=== PATIENT | male | born 1945 | race Caucasian/White ===

== ENCOUNTER → 2020-12-03 | Outpatient (CLI) | payer OTHER ==
[~2020-12-03] MED LIST: ALDACTONE 25MG25 MG PO; ASPIR 8181 MG PO; CRESTOR20 MG PO; EFFIENT10 MG PO; LEVOXYL75 MCG PO; METFORMIN HCL1000 M1 PO; PRINIVIL20 MG PO; RANEXA500 MG PO; TENORMIN 50 MG50 MG PO
[2020-12-03 09:41] LABS: HEMOGLOBIN 16.3 gm/dl (14.0-17.5); RED BLOOD COUNT 5.12 M/UL (4.20-5.50); WHITE BLOOD COUNT 8.3 K/UL (4.5-11.0)
[2020-12-03 10:22] LABS: BUN/CREATININE RATIO 13 (0-10)
[2020-12-04 10:14] LABS: CREATININE, URINE 155.1 mg/dL (Not Estab.)
[2020-12-05 12:14] LABS: CHOLESTEROL, TOTAL 115 mg/dL (100-199); HDL SIZE 8.6 nm (>=9.2); HDL-C 33 mg/dL (>39); HDL-P (TOTAL) 25.7 umol/L (>=30.5); LARGE HDL-P 1.9 umol/L (>=4.8); LARGE VLDL-P 6.5 nmol/L (<=2.7); LDL SIZE 20.3 nm (>20.5); LDL SIZE 20.3 nm (>=20.8); LDL-C 58 mg/dL (0-99); LDL-P 885 nmol/L (<1000); LP-IR SCORE 82 (<=45); SMALL LDL-P 485 nmol/L (<=527); TRIGLYCERIDES 137 mg/dL (0-149); VLDL SIZE 54.4 nm (<=46.6)
== END ==
LOC: LAB 09:04
PROVIDERS: Emergency Medicine
DX: E11.42 Type 2 diabetes mellitus with diabetic polyneuropathy (principal); E11.65 Type 2 diabetes mellitus with hyperglycemia; E11.69 Type 2 diabetes mellitus with other specified complication; E78.2 Mixed hyperlipidemia; E03.8 Other specified hypothyroidism; I25.10 Atherosclerotic heart disease of native coronary artery without angina pectoris; J20.8 Acute bronchitis due to other specified organisms; E11.22 Type 2 diabetes mellitus with diabetic chronic kidney disease; I12.9 Hypertensive chronic kidney disease with stage 1 through stage 4 chronic kidney disease, or unspecified chronic kidney disease; N18.2 Chronic kidney disease, stage 2 (mild); L25.8 Unspecified contact dermatitis due to other agents
CPT/HCPCS: 36415; 80053; 82043; 82570; 83036; 84550; 85025

== ENCOUNTER → 2021-07-07 | Outpatient (CLI) | payer OTHER ==
[2021-07-07 09:54] LABS: BUN/CREATININE RATIO 9 (0-10)
== END ==
LOC: LAB 09:13
PROVIDERS: Emergency Medicine
DX: E11.42 Type 2 diabetes mellitus with diabetic polyneuropathy (principal); I10 Essential (primary) hypertension; E78.2 Mixed hyperlipidemia; E03.8 Other specified hypothyroidism
CPT/HCPCS: 36415; 80053; 83036

== ENCOUNTER 2022-02-24 15:33 | Inpatient (IN) | payer OTHER ==
[~2022-02-24] VITALS: Ht 170.2 cm; Wt 105.2 kg
[~2022-02-24 15:33] MED LIST changes: -CRESTOR20 MG PO
[2022-02-24 17:44] LABS: HEMOGLOBIN 14.5 gm/dl (14.0-17.5); RED BLOOD COUNT 4.71 M/UL (4.20-5.50); WHITE BLOOD COUNT 15.6 K/UL (4.5-11.0)
[2022-02-24 18:37] LABS: BUN/CREATININE RATIO 17 (0-10)
[2022-02-25] MEDS ORDERED: CRESTOR40 MG PO (01:23)
[2022-02-25 02:54] LABS: RED BLOOD COUNT 4.33 M/UL (4.20-5.50); WHITE BLOOD COUNT 15.7 K/UL (4.5-11.0)
[2022-02-25 03:18] LABS: BUN/CREATININE RATIO 17 (0-10)
[2022-02-25] MEDS ORDERED: TOUJEO MAX300 UNIT/1 SQ (11:03)
[2022-02-25] MEDS ORDERED: PREGABALIN50 MG PO (11:03)
[2022-02-25] MEDS ORDERED: AMLODIPINE BESYL5 MG PO (11:04)
[2022-02-25] MEDS ORDERED: ISOSORBIDE MONO30 MG PO (11:05)
[2022-02-25] MEDS ORDERED: AMARYL2 MG PO (11:05)
[2022-02-25] MEDS ORDERED: METOPROLOL TART50 MG PO (11:06)
[2022-02-25] MEDS ORDERED: NITROGLYCERIN0.4 MG SL (11:08)
[2022-02-25] MEDS ORDERED: TYLENOL325 M1 PO (11:09)
[2022-02-25] MEDS ORDERED: DOCUSATE SODIU100 MG PO (11:11)
[2022-02-25] MEDS ORDERED: ALAVERT10 MG PO (11:11)
[2022-02-25] MEDS ORDERED: [UNRECOGNIZED DRUG - OTHER] PO (11:17)
--- NOTE | 2022-02-25 19:09 | NUR ---
02/25/22 5640 PATIENT VERBALIZED THAT HE NO LONGER WANTED TO HAVE DNR STATUS. PATIENT VERBALIZED THAT HE WISHED TO BE A FULL CODE.
--- NOTE | 2022-02-25 19:56 | NUR ---
CALLED DR. POOLE TO ASK ABOUT THE PATIENT'S CODE STATUS. AT THIS TIME, THE PATIENT IS A DNR, BUT WANTED TO BE MADE A FULL CODE. DR. POOLE SAID THAT THE PATIENT WAS STILL SEDATED FROM SURGERY EARLIER TODAY, AND IF HE WAS FULLY ALERT AND ORIENTED THE ORDER COULD BE CHANGED TO FULL CODE STATUS. PATIENT AND FAMILY WANTED TO MAKE SURE THAT THE PATIENT'S CODE STATUS WAS MADE A FULL CODE. PATIENT STATED HIS NAME, BIRTHDATE, WHERE HE WAS, AND DATE. FULLY ALERT AND ORIENTED. I EXPLAINED THE CODE STATUS, THEN ASK: GOD FORBID, BUT IF HIS HEART STOPPED, DO YOU WANT US TO DO EVERYTHING WE CAN TO BRING YOU BACK. THE PATIENT AND THE FAMILY STATED YES.
[2022-02-26 03:17] LABS: HEMOGLOBIN 13.8 gm/dl (14.0-17.5); RED BLOOD COUNT 4.6 M/UL (4.20-5.50); WHITE BLOOD COUNT 13.8 K/UL (4.5-11.0)
[2022-02-26 03:52] LABS: BUN/CREATININE RATIO 17 (0-10)
--- NOTE | 2022-02-26 05:20 | NUR ---
Telemetry called to notify that patient leads were off, patient refused for leads to be placed at this time. Patient wishes to leave leads off until he takes a shower in approximately 30 minutes. Telemetry notified of patient wishes at this time. Education provided to patient.
== END 2022-02-26 09:52 | disposition home or self-care (01) | DRG 418 ==
LOC: ER1 15:33 → M/S 21:38 → CDU 21:38 → M/S 02-25 00:09
PROVIDERS: Emergency Medicine; Internal Medicine; Surgery; ADMIT Internal Medicine
PROC: 0FT44ZZ Resection of Gallbladder, Percutaneous Endoscopic Approach (ICD-10-PCS; principal; 2022-02-25 14:00)
DX: K80.00 Calculus of gallbladder with acute cholecystitis without obstruction (principal); E87.1 Hypo-osmolality and hyponatremia; I25.10 Atherosclerotic heart disease of native coronary artery without angina pectoris; E11.9 Type 2 diabetes mellitus without complications; I10 Essential (primary) hypertension; Z20.822 Contact with and (suspected) exposure to COVID-19; E03.9 Hypothyroidism, unspecified; E78.5 Hyperlipidemia, unspecified; K59.00 Constipation, unspecified; E66.9 Obesity, unspecified; G89.29 Other chronic pain; Z95.1 Presence of aortocoronary bypass graft; Z88.0 Allergy status to penicillin; Z98.890 Other specified postprocedural states; Z79.4 Long term (current) use of insulin; Z79.82 Long term (current) use of aspirin; Z79.899 Other long term (current) drug therapy; Z68.36 Body mass index [BMI] 36.0-36.9, adult
CPT/HCPCS: 71045; 76705; 78226; 80053; 81001; 82962; 83690; 85025; 85027; 93005; 96374; 96375; 99285; A9537; J0690; J1100; J1335; J1650; J1956; J2001; J2270; J2405; J2704; J2710; J3010; J7030; J7120; Q9967; U0002